=== PATIENT | female | born 1995 | race American Indian/Alaskan Native ===

== ENCOUNTER 2016-07-15 02:23 | Emergency (ER) | payer SELFPAY ==
[2016-07-15] MEDS ORDERED: BENADRYL PO ONE ×2 (03:42)
[2016-07-15] MEDS ORDERED: DELTASONE PO ONE (03:43)
[2016-07-15] MEDS ORDERED: PEPCID PO ONE (03:43)
--- NOTE | 2016-07-15 07:34 | Emergency Department Report ---
HPI - General Chief Complaint: Allergic Reaction Time Seen by Provider: 07/15/16 07:17 - HPI HPI: Patient states that she had allergic reaction at about 2 AM this morning after something she ate. Patient states she had a rash initially but denies any shortness of breath swelling of lips, tongue, or throat. Patient states all symptoms of now resolved since sitting in the ER and would like to be discharged now. Patient denies any other complaints. ED Past Medical Hx - Past Medical History Previous Medical History?: No - Surgical History Past Surgical History?: No - Social History Smoking Status: Never Smoker Substance Use Type: None - Medications Home Medications: Home Medications Medication Instructions Recorded Confirmed Last Taken Type ALBUTEROL Inhaler [ProAir HFA 2 puff IH QID PRN #1 inhalation 07/15/16 Unknown Rx Inhaler] Prednisone [predniSONE 10 mg 10 mg PO .TAPER #1 tab.ds.pk 07/15/16 Unknown Rx (6-Day Pack, 21 Tabs)] hydrOXYzine PAMOATE [Vistaril] 25 mg PO Q6HR PRN #12 capsule 07/15/16 Unknown Rx ED Review of Systems ROS: Stated complaint: ALLERGIC REACTION Other details as noted in HPI Physical Exam - Physical Exam Vital Signs: Vital Signs 07/15/16 03:32 Temperature 97.7 F Pulse Rate 72 Respiratory 18 Rate Blood Pressure 115/71 Blood Pressure 115/71 [Left] O2 Sat by Pulse 100 Oximetry General: Patient's awake alert and oriented in no acute distress. Patient is normotensive normal cardiac and afebrile. Patient has no focal neuro deficit, pupils are equal and reactive to light and accommodation, conjunctiva clear. HEENT clear, no swelling, no angioedema noted. Skin is clear with no rashes or lesions noted. Bilateral breath sounds are clear to auscultation patient has no respiratory distress no wheezing. Abdomen soft nontender. Patient has no peripheral edema has strong equal pulses in all extremities. Patient has no signs of allergic reaction now, patient advised return to ER for any new symptoms that may arise. ED Course Vital Signs 07/15/16 03:32 Temperature 97.7 F Pulse Rate 72 Respiratory 18 Rate Blood Pressure 115/71 Blood Pressure 115/71 [Left] O2 Sat by Pulse 100 Oximetry Critical care attestation.: If time is entered above; I have spent that time in minutes in the direct care of this critically ill patient, excluding procedure time. ED Disposition Clinical Impression: Allergic reaction Disposition: DISCHARGED TO HOME OR SELFCARE Is pt being admited?: No Condition: Stable Instructions: Food Allergy (ED) Prescriptions: ALBUTEROL Inhaler [ProAir HFA Inhaler] 2 puff IH QID PRN #1 inhalation PRN Reason: Shortness Of Breath hydrOXYzine PAMOATE [Vistaril] 25 mg PO Q6HR PRN #12 capsule PRN Reason: Allergy Symptoms Prednisone [predniSONE 10 mg (6-Day Pack, 21 Tabs)] 10 mg PO .TAPER #1 tab.ds.pk Referrals: ACACIA FARIAS MD [Staff Physician] - 3-5 Days Forms: Work/School Release Form(ED)
[2016-07-15 07:51] VITALS: BP 113/68
== END 2016-07-15 07:48 | disposition home or self-care (01) ==
LOC: ED 02:23
DX: T78.40XA Allergy, unspecified, initial encounter (principal); Y92.9 Unspecified place or not applicable
CPT/HCPCS: 99282; J7512; Q0163